=== PATIENT | female | born 1990 | race Caucasian/White ===

== ENCOUNTER 2018-03-31 22:44 | Emergency (ER) | payer OTHER ==
[~2018-03-31] VITALS: Ht 154.9 cm; Wt 68.0 kg
[2018-04-01] MEDS ORDERED: NORCO 5-325 TA1 EACH PO (00:08)
== END 2018-04-01 00:34 | disposition home or self-care (01) ==
LOC: ED 22:44
PROC: 2W3AX1Z Immobilization of Right Upper Arm using Splint (ICD-10-PCS; principal; 2018-03-31)
DX: S52.121A Displaced fracture of head of right radius, initial encounter for closed fracture (principal); W01.198A Fall on same level from slipping, tripping and stumbling with subsequent striking against other object, initial encounter; Z87.891 Personal history of nicotine dependence
CPT/HCPCS: 29105; 73080; 99283-25

== ENCOUNTER 2020-02-06 11:45 | Day surgery (SDC) | payer OTHER ==
[~2020-02-06] VITALS: Ht 154.9 cm; Wt 76.8 kg
[~2020-02-06 11:45] MED LIST: GABAPENTIN300 MG PO; NORCO 5-325 TA1 EACH PO; NUVARING VAGIN1 EACH VAGINAL
--- NOTE | 2020-02-06 14:04 | NUR ---
PATIENT UP TO BATHROOM. JOSÉ MANUEL MAYFIELD INTO ROOM, OKAYED PATIENT TO KEEP FACIAL PIERCINGS IN PLACE. LEFT HAND MARKED BY DR. BELTRAN FOR SURGERY.
[2020-02-06] MEDS ORDERED: CELECOXIB200 MG PO (14:10)
[2020-02-06] MEDS ORDERED: HYDROCODON-ACE1 EA10 PO (14:10)
--- NOTE | 2020-02-06 15:47 | NUR ---
02/06/20 1547 Beverley Pineda 1440 PT ARRIVED IN PACU NON RESPONSIVE TO NOXIOUS STIMULI WITH OPA IN PLACE. 1455 PT REACTIVE. OPA REMOVED. 1500 OXGYEN REMOVED. SITTING UP IN BED TALKING TO STAFF. 1515 DC INSTRUCTIONS GIVEN. ALL QUESTIONS ANSWERED. 1525 LEFT VIA W/C WITH SLING IN PLACE.
--- NOTE | 2020-02-08 10:40 | OR ---
[facility] [address] [place], [place] [address] Signed DATE OF OPERATION: 01/06/2020 SURGEON: Lydia Parikh MD PREOPERATIVE DIAGNOSIS: Carpal tunnel syndrome, left. POSTOPERATIVE DIAGNOSIS: Carpal tunnel syndrome, left. PROCEDURE PERFORMED: Carpal tunnel release, left. SUPPLY CHAIN DEVELOPMENT MANAGER: KAREN Ferguson. ANESTHESIA: [place] block. TOURNIQUET TIME: 20 minutes. BRIEF HISTORY: Chung is a 29-year-old female with progressive worsening numbness and pain in her wrist and hand. Risks and benefits of operative treatment were discussed with her after nerve conduction studies confirmed carpal tunnel. DESCRIPTION OF PROCEDURE: Once consent was obtained, she was taken to the operating room after adequate anesthesia, was placed on the day surgery bed. The hand was prepped and draped in a standard sterile fashion. A 1.5 cm incision was made in the distal palmar crease, carried through skin and subcutaneous tissue. The palmaris longus was identified, retracted, and protected. It was quite thin. The transverse carpal ligament was then identified under loupe magnification and dissected free of overlying soft tissue. It was then released proximally 1 cm and distally to the distal extent of the ligament. This was palpated using the [place] to ensure complete release. The nerve looked good. The wound was copiously irrigated with antibiotic solution, closed with 3-0 nylon and injected with 5 mL of 0.25% plain Marcaine at the end of the procedure. She tolerated the procedure well. All sponge, needle, and instrument counts were correct. The wound was dressed Electronically Signed By: LYDIA PARIKH MD 02/08/20 1040 PATIENT NAME: CHUNG DOMINGUEZ OPERATIVE REPORT DATE OF : [birth year] REPORT #: [id number] PHYSICIAN: LYDIA PARIKH MD PCP: NO PRIMARY CARE PHYSICIAN REPORT IS CONFIDENTIAL AND NOT TO BE RELEASED WITHOUT AUTHORIZATION [address] [place], [place] [address] Signed with bacitracin, Adaptic, 4 x 8s, and gauze. Lydia Parikh MD BA/MODL /[id number] Copies: ~ Electronically Signed By: LYDIA PARIKH MD 02/08/20 1040 PATIENT NAME: CHUNG DOMINGUEZ OPERATIVE REPORT DATE OF : [birth year] REPORT #: [id number] PHYSICIAN: LYDIA PARIKH MD PCP: NO PRIMARY CARE PHYSICIAN REPORT IS CONFIDENTIAL AND NOT TO BE RELEASED WITHOUT AUTHORIZATION
== END 2020-02-06 15:25 | disposition home or self-care (01) ==
LOC: OPS 11:45 → DS 11:45 → OPS 12:30 → DS 14:15 → OPS 14:15
PROVIDERS: ATTEND Specialist
PROC: 01N50ZZ Release Median Nerve, Open Approach (ICD-10-PCS; principal; 2020-02-06 12:30)
DX: G56.03 Carpal tunnel syndrome, bilateral upper limbs (principal); J45.909 Unspecified asthma, uncomplicated; Z79.899 Other long term (current) drug therapy
CPT/HCPCS: 01810; J0690; J1100; J1885; J2250; J2405; J2704; J2765; J3010; J7121

== ENCOUNTER 2020-11-14 13:45 | Inpatient (IN) | payer OTHER ==
[~2020-11-14] VITALS: Ht 156.2 cm; Wt 81.2 kg
[~2020-11-14 13:45] MED LIST changes: +CELECOXIB200 MG PO; +HYDROCODON-ACE1 EA10 PO
--- NOTE | 2020-11-14 14:52 | NUR ---
RAPID COVID DONE TO BOTH NARES PATIENT TOLERATED WELL.
[2020-11-14] MEDS ORDERED: METHADONE HCL40 MG PO (17:31)
--- NOTE | 2020-11-14 21:23 | PR ---
[facility] [address] [facility] [place], [place] [address] Signed Progress Notes IP Datetime Report Generated by CPN: 11/14/2020 21:23 PROGRESS NOTES: [id number] Impression: Normal Progression of Labor; Reassuring Heart Rate Procedures: Sterile Vag Exam Plan: Continue Present Management VITAL SIGNS: [id number] Vital Signs: Reviewed; Within Normal Limits EXAM: [id number] Dilatation: 6.0 Effacement: 90 Station: -1 Contractions: Irregular MEMBRANES: [id number] Comments: Pt seen and examined. Doing well. S/P labor epidural and reporting more comfortable. Progessing nicely. Discussed anticipated course of labor. All questions answered FETUS A: [id number] FHR Baseline: 120 Variability: Moderate 6-25bpm Accelerations: 15X15 Decelerations: None FHR Category: Category I Presentation: Vertex Comments on Fetus A: No evidence of metabolic acidosis FETUS B: [id number] Signing Physician: Óscar Floyd DO Copies: ~ *Electronically Signed* 11/14/202122 ÓSCAR FLOYD DO PATIENT NAME: CHUNG DOMINGUEZ PROGRESS NOTE DATE OF : [birth year] PHYSICIAN: ÓSCAR FLOYD DO RPT #: [id number] REPORT IS CONFIDENTIAL AND NOT TO BE RELEASED WITHOUT AUTHORIZATION
--- NOTE | 2020-11-15 02:50 | PR ---
[facility] [address] [place], [place] [address] Signed Progress Notes IP Datetime Report Generated by CPN: 11/15/2020 02:50 PROGRESS NOTES: [id number] Impression: Normal Progression of Labor; Reassuring Heart Rate Procedures: Sterile Speculum Exam Plan: Continue Present Management; Anticipate Vaginal Delivery Informed Consent Obtain: Vaginal Delivery VITAL SIGNS: [id number] Vital Signs: Reviewed; Within Normal Limits EXAM: [id number] Dilatation: 10.0 Effacement: 100 Station: 0 Contractions: Irregular MEMBRANES: [id number] Comments: Pt in second stage of labor pushing well w/ contractions. KOURTNEY position noted, and progress noted w/ each contraction. FHT reassuring w/ moderate variability and accels. Alternating pushing positions. Anticipate soon. Reviewed adequate pelvis and EFW FETUS A: [id number] FHR Baseline: 120 Variability: Moderate 6-25bpm Accelerations: 15X15 Decelerations: None FHR Category: Category I Presentation: Vertex Comments on Fetus A: No evidence of metabolic acidosis FETUS B: [id number] Signing Physician: Óscar Floyd DO Copies: ~ *Electronically Signed* 11/15/20 025 ÓSCAR FLOYD DO PATIENT NAME: CHUNG DOMINGUEZ PROGRESS NOTE DATE OF : [birth year] PHYSICIAN: ÓSCAR FLOYD DO RPT #: [id number] REPORT IS CONFIDENTIAL AND NOT TO BE RELEASED WITHOUT AUTHORIZATION
--- NOTE | 2020-11-17 07:27 | PR ---
[facility] [address] [place], [place] [address] Signed PP Progress Notes Datetime Report Generated by CPN: 11/17/2020 07:27 SUBJECTIVE: [id number] Pain: Within Normal Limits Nausea/Vomiting: Denies Flatus: Yes Bowel Movement: No Vital Signs: [id number] Vital Signs: Reviewed; Within Normal Limits Cardiovascular: Normal Respiratory: Normal Abdomen/Uterus: Normal Lochia: Not Done Vulva/Perineum: Not Done Breasts: Not Done CVA Tenderness: Normal Extremities: Normal Incision: Not Applicable Progress: Normal Exam Comments: Fundus firm U-2 nontender IMPRESSION/PLAN/PROCEDURES: [id number] Impression: Normal Progression Plan: Discharge Progress Notes: Pt seen and examined. Doing well. Ambulating, voiding, and tolerating full diet. Pain and lochia minimal. Breast and bottle feeding. No fevers/chills or other concerns. Desires d/c home. Reviewed d/c instructions in detail. Planning NuvaRing for pp contraception. No questions or concerns. Signing Physician: Óscar Floyd DO Copies: ~ *Electronically Signed* 11/17/20 0727 ÓSCAR FLOYD DO PATIENT NAME: CHUNG DOMINGUEZ PROGRESS NOTE DATE OF : [birth year] PHYSICIAN: ÓSCAR FLOYD DO RPT #: [id number] REPORT IS CONFIDENTIAL AND NOT TO BE RELEASED WITHOUT AUTHORIZATION
== END 2020-11-17 08:00 | disposition home or self-care (01) | DRG 806 ==
LOC: FBCO 13:45 → FBC 14:00
PROVIDERS: ADMIT Obstetrics & Gynecology; ATTEND Obstetrics & Gynecology
PROC: 10E0XZZ Delivery of Products of Conception, External Approach (ICD-10-PCS; principal; 2020-11-15)
PROC: 3E0R3BZ Introduction of Anesthetic Agent into Spinal Canal, Percutaneous Approach (ICD-10-PCS; 2020-11-15)
PROC: 00HU33Z Insertion of Infusion Device into Spinal Canal, Percutaneous Approach (ICD-10-PCS; 2020-11-15)
PROC: 0HQ9XZZ Repair Perineum Skin, External Approach (ICD-10-PCS; 2020-11-15)
DX: O99.324 Drug use complicating childbirth (principal); F11.20 Opioid dependence, uncomplicated; Z37.0 Single live birth; O70.0 First degree perineal laceration during delivery; Z3A.38 38 weeks gestation of pregnancy
CPT/HCPCS: 01960; 82803; 85027; C9803; J2405; J2540; J7121; U0003